=== PATIENT | female | born 1970 | race Caucasian/White ===

== ENCOUNTER → 2020-08-06 13:11 | Outpatient (BNVA) | payer OTHER, SELFPAY | PROVIDERS: PCP Internal Medicine; Visit Provider Student in an Organized Health Care Education/Training Program ==

== ENCOUNTER 2020-08-07 13:22 | Outpatient (REF) | payer OTHER, SELFPAY ==
--- NOTE | ~2020-08-07 | XR_ITS ---
EXAMINATION: PELVIS, LUMBAR SPINE AND BILATERAL HAND X-RAY CLINICAL INFORMATION: Pain COMPARISON: None TECHNIQUE: One view pelvis, 3 views of the lumbar spine and 3 views of each hand FINDINGS: Pelvis: Bone alignment is normal. No fracture or dislocation is seen. The hip joints are normal. Soft tissues are normal. Lumbar spine: There is curvature of the lower lumbar spine to the left. Bone alignment is otherwise normal. Disc spaces are normal. There is mild lower lumbar spine facet arthritis. Bilateral hand: There may be mild periarticular osteopenia at the MCP and IP joints. Bone alignment is normal. No fracture or dislocation is seen. Joint spaces and soft tissues are normal. XR/XR hand LT min 3V IMPRESSION: Pelvis: Unremarkable exam Lumbar spine: Mild scoliosis and lower lumbar spine facet arthritis Bilateral hands. Periarticular osteopenia
--- NOTE | ~2020-08-07 | XR_ITS ---
EXAMINATION: PELVIS, LUMBAR SPINE AND BILATERAL HAND X-RAY CLINICAL INFORMATION: Pain COMPARISON: None TECHNIQUE: One view pelvis, 3 views of the lumbar spine and 3 views of each hand FINDINGS: Pelvis: Bone alignment is normal. No fracture or dislocation is seen. The hip joints are normal. Soft tissues are normal. Lumbar spine: There is curvature of the lower lumbar spine to the left. Bone alignment is otherwise normal. Disc spaces are normal. There is mild lower lumbar spine facet arthritis. Bilateral hand: There may be mild periarticular osteopenia at the MCP and IP joints. Bone alignment is normal. No fracture or dislocation is seen. Joint spaces and soft tissues are normal. XR/XR lumbar spine 2-3V IMPRESSION: Pelvis: Unremarkable exam Lumbar spine: Mild scoliosis and lower lumbar spine facet arthritis Bilateral hands. Periarticular osteopenia
--- NOTE | ~2020-08-07 | XR_ITS ---
EXAMINATION: PELVIS, LUMBAR SPINE AND BILATERAL HAND X-RAY CLINICAL INFORMATION: Pain COMPARISON: None TECHNIQUE: One view pelvis, 3 views of the lumbar spine and 3 views of each hand FINDINGS: Pelvis: Bone alignment is normal. No fracture or dislocation is seen. The hip joints are normal. Soft tissues are normal. Lumbar spine: There is curvature of the lower lumbar spine to the left. Bone alignment is otherwise normal. Disc spaces are normal. There is mild lower lumbar spine facet arthritis. Bilateral hand: There may be mild periarticular osteopenia at the MCP and IP joints. Bone alignment is normal. No fracture or dislocation is seen. Joint spaces and soft tissues are normal. XR/XR hand RT min 3V IMPRESSION: Pelvis: Unremarkable exam Lumbar spine: Mild scoliosis and lower lumbar spine facet arthritis Bilateral hands. Periarticular osteopenia
--- NOTE | ~2020-08-07 | XR_ITS ---
EXAMINATION: PELVIS, LUMBAR SPINE AND BILATERAL HAND X-RAY CLINICAL INFORMATION: Pain COMPARISON: None TECHNIQUE: One view pelvis, 3 views of the lumbar spine and 3 views of each hand FINDINGS: Pelvis: Bone alignment is normal. No fracture or dislocation is seen. The hip joints are normal. Soft tissues are normal. Lumbar spine: There is curvature of the lower lumbar spine to the left. Bone alignment is otherwise normal. Disc spaces are normal. There is mild lower lumbar spine facet arthritis. Bilateral hand: There may be mild periarticular osteopenia at the MCP and IP joints. Bone alignment is normal. No fracture or dislocation is seen. Joint spaces and soft tissues are normal. XR/XR pelvis 1-2V IMPRESSION: Pelvis: Unremarkable exam Lumbar spine: Mild scoliosis and lower lumbar spine facet arthritis Bilateral hands. Periarticular osteopenia
[2020-08-07 13:50] LABS: MANUAL DIFF FLAG NO
[2020-08-07 13:55] LABS: Basophils Absolute Auto 0.1 X10*3/uL (0.0-0.2); Basophils Percent Auto 0.8 % (0-2); Eosinophils Absolute Auto 0.1 X10*3/uL (0.0-0.4); Eosinophils Percent Auto 1.7 % (0-4); Hematocrit 42.2 % (37-47); Hemoglobin 13.9 g/dl (12.0-16.0); Imm Gran Abs Auto 0.01 X10*3/uL (0.00-0.03); Imm Gran Pct Auto 0.2 % (0.0-0.4); Lymphocytes Absolute Auto 1.9 X10*3/uL (1.2-4.9); Lymphocytes Percent Auto 27.9 % (20-40); Mean Corpuscular HGB Conc 32.9 g/dl (31.0-35.0); Mean Corpuscular Hemoglobin 31.7 pg (27.0-33.0); Mean Corpuscular Volume 96.3 fL (80-98); Mean Platelet Volume 10.3 fL (9.4-12.3); Monocytes Absolute Auto 0.5 X10*3/uL (0.1-1.2); Monocytes Percent Auto 7.5 % (2-11); Neutrophils Absolute Auto 4.1 X10*3/uL (2.0-8.3); Neutrophils Percent Auto 61.9 % (45-73); Platelet Count 268 X10*3/uL (160-400); Red Blood Count 4.38 X10*6/uL (4.20-5.50); Red Cell Distribution Width 13.9 % (11.0-16.0); White Blood Count 6.6 X10*3/uL (4.8-10.8)
[2020-08-07 14:26] LABS: Alanine Aminotransferase 31 U/L (0-31); Albumin Level 4.9 g/dL (3.5-5.0); Alkaline Phosphatase 81 U/L (39-117); Anion Gap 12 (12-20); Aspartate Amino Transferase 29 U/L (5-31); Bilirubin Total 0.7 mg/dL (0.0-1.0); Blood Urea Nitrogen 14 mg/dL (9-16); C Reactive Protein 1.12 mg/dL (< or = 0.50); Calcium 9.7 mg/dL (8.4-10.2); Carbon Dioxide 31 mmol/L (22-29); Chloride 101 mmol/L (96-108); Estimated Glomerular Filt Rate > 60; Glucose Random 106 mg/dL (60-115); Potassium 4.9 mmol/L (3.3-5.1); Sodium 139 mmol/L (135-145); Total Protein 7.3 g/dL (6.5-8.0)
[2020-08-07 14:35] LABS: Rheumatoid Factor < 15.0 IU/mL (<15.0)
[2020-08-07 14:39] LABS: Erythrocyte Sedimentation Rate 6 MM/HR (0-20)
[2020-08-07 14:45] LABS: Thyroid Stimulating Hormone 2.31 uIU/mL (0.32-4.0)
[2020-08-08 06:22] LABS: Lyme Abs Screen <0.90 index
[2020-08-08 15:37] LABS: Cyclic Citrullinated Peptide <16 UNITS
[2020-08-11 14:37] LABS: Vitamin D 25-OH, D2 <4 ng/mL; Vitamin D 25-OH, D3 28 ng/mL; Vitamin D 25-OH, Total 28 ng/mL (30-100)
[2020-08-12 13:56] LABS: Anti Nuclear Antibody Screen POSITIVE (NEGATIVE)
== END 2020-08-07 13:23 | disposition home or self-care (01) ==
LOC: HO.LAB 13:22
PROVIDERS: PCP Internal Medicine; Visit Provider Student in an Organized Health Care Education/Training Program
DX: M25.50 Pain in unspecified joint (principal)
CPT/HCPCS: 36415; 72100; 72170; 73130; 80053; 82306; 84443; 85025; 85652; 86038; 86039; 86140; 86200; 86431; 86618

== ENCOUNTER 2020-08-21 10:24 | Outpatient (REF) | payer OTHER, SELFPAY ==
[2020-08-21 12:06] LABS: Blood Urea Nitrogen 13 mg/dL (9-16); Estimated Glomerular Filt Rate > 60
[2020-08-21 13:44] LABS: Glucose Urine UA NEG (NEG); Leukocyte Esterase Urine NEG (NEG); Nitrite Urine NEG (NEG); PH 7.5 (5.0-8.0); Urine Blood NEG (NEG); Urine Ketones NEG (NEG); Urine Protein NEG (NEG-TRACE)
[2020-08-21 13:48] LABS: Appearance Urine CLEAR; Color Urine YELLOW
[2020-08-21 14:18] LABS: Bacteria Urine TRACE /LPF; RBC Urine 0-2 /HPF (0); Squamous Epithelial Cell Urine 2+ /LPF
[2020-08-22 09:01] LABS: Thyroglobulin Antibodies 1 IU/mL (< or = 1); Thyroid Peroxidase Antibodies <1 IU/mL (<9)
[2020-08-22 13:07] LABS: Anti DNA DS Antibody <1 IU/mL; Antibody to SS-A Antigen <1.0 NEG AI (<1.0 NEG); Antibody to SS-B Antigen <1.0 NEG AI (<1.0 NEG); Complement C3 92 mg/dL (83-193); SM/Ribonucleoprotein Ab <1.0 NEG AI (<1.0 NEG); Smith Protein <1.0 NEG AI (<1.0 NEG)
== END 2020-08-21 10:25 | disposition home or self-care (01) ==
LOC: HO.LAB 10:24
PROVIDERS: PCP Internal Medicine; Visit Provider Student in an Organized Health Care Education/Training Program
DX: R76.8 Other specified abnormal immunological findings in serum (principal); M85.80 Other specified disorders of bone density and structure, unspecified site
CPT/HCPCS: 36415; 81001; 82565; 84520; 86160; 86225; 86235; 86376; 86800

== ENCOUNTER 2020-09-04 15:40 | Outpatient (REF) | payer OTHER, SELFPAY ==
--- NOTE | ~2020-09-04 | MR_ITS ---
EXAMINATION: MR HAND WITHOUT AND WITH CONTRAST, RIGHT CLINICAL INFORMATION: Bilateral hand pain for 1 year. COMPARISON: Right hand radiographs dated 08/07/2020. TECHNIQUE: Multisequence MR imaging of the right hand was performed before and after the administration of 7 mL Gadavist contrast on a high-field strength scanner. FINDINGS: BONE: Poor fat saturation somewhat limits evaluation of the 1st metacarpal. No additional abnormal marrow signal. No acute fracture or dislocation. No significant postcontrast enhancement. Intact articular cartilage. Normal carpal alignment. MUSCLES/TENDONS: The visualized flexor and extensor tendons are intact. LIGAMENTS: The collateral ligaments are grossly intact. SOFT TISSUES: No abnormal soft tissue mass or fluid collection. No significant joint effusion. MR/MR hand RT wo/w con IMPRESSION: Unremarkable examination.
--- NOTE | ~2020-09-04 | MR_ITS ---
EXAMINATION: MRI HAND, WITHOUT AND WITH CONTRAST, LEFT CLINICAL INFORMATION: Bilateral hand pain. COMPARISON: Left hand radiographs dated 08/07/2020. TECHNIQUE: Multisequence MR images of the left hand were obtained before and after the administration of 7 mL Gadavist IV contrast on a high-field strength scanner. FINDINGS: BONE: Poor fat saturation of the 1st metacarpal, somewhat limiting evaluation. No abnormal marrow signal. No marrow edema or evidence of acute osseous injury. No acute fracture or dislocation. Intact articular cartilage. No concerning lytic or blastic osseous lesion. No periarticular erosion. MUSCLES/TENDONS: The visualized muscles and tendons are intact. LIGAMENTS: The collateral ligaments are grossly intact. SOFT TISSUES: No significant joint effusion. No abnormal soft tissue mass or fluid collection. MR/MR hand LT wo/w con IMPRESSION: Unremarkable examination.
== END 2020-09-04 15:41 | disposition home or self-care (01) ==
LOC: HO.MRI 15:40
PROVIDERS: Visit Provider Student in an Organized Health Care Education/Training Program
DX: R76.8 Other specified abnormal immunological findings in serum (principal); M79.642 Pain in left hand; M79.641 Pain in right hand
CPT/HCPCS: 73220; A9585

== ENCOUNTER → 2020-10-09 14:17 | Outpatient (BNVA) | payer OTHER, SELFPAY | PROVIDERS: Visit Provider Student in an Organized Health Care Education/Training Program ==